=== PATIENT | female | born 1965 | race African-American/Black ===

== ENCOUNTER 2017-10-17 13:31 | Observation (INO) ==
--- NOTE | 2017-10-17 14:13 | ED ---
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 She tells me her blood pressure has been running high since 2011, but she started not feeling right this morning when she woke up. She cannot describe this feeling. She denies any chest pain or tightness. She denies any shortness of breath. She denies any headache, nausea, vomiting. She has no new focal deficits or weakness. She states she simply just feels weak. Related Data Home Medications Medication Instructions Recorded Confirmed Unable to Obtain Home Meds 10/17/17 10/17/17 Allergies Allergy/AdvReac Type Severity Reaction Status Date / Time No Known Allergies Allergy Unverified 10/17/17 14:10 Review of Systems ROS: all other systems reviewed are negative FOR[facility]LY [facility] Medical History Medical History CVA (cerebral vascular accident) (Acute) Hypertension (Acute) Surgical History Surgical History H/O hernia repair (Acute) Social History Social History Substance History: No History of Abuse Second Hand Smoke Exposure: No Smoking Status: Former smoker Tobacco Type: Cigarettes How Often Do You Have a Drink Containing Alcohol: Never Recent Travel in [facility] within the Last 8 Weeks: No Recent Out of Country Travel within the Last 8 Weeks: No Exam Narrative Exam Narrative: GENERAL: Well-nourished female patient, appears nontoxic and without distress SKIN: Focused skin assessment warm/dry. HEAD: Atraumatic. Normocephalic. EYES: Pupils equal and round. No scleral icterus. No injection or drainage. ENT: No nasal bleeding or discharge. Mucous membranes pink and moist. NECK: Trachea midline. No JVD. CARDIOVASCULAR: Regular rate and rhythm. No murmur appreciated. RESPIRATORY: No accessory muscle use. Clear to auscultation. Breath sounds equal bilaterally. GASTROINTESTINAL: Abdomen soft, non-tender, nondistended. Hepatic and splenic margins not palpable. MUSCULOSKELETAL: Contraction of the right hand. Weakness and limited movement right upper and lower extremity. NEUROLOGICAL: Awake and alert. Patient does move all extremities however. She does have clear speech. PSYCHIATRIC: Appropriate mood and affect; insight and judgment normal. Course Initial Documented Vital Signs Temperature 98.3 F 10/17/17 13:59 Pulse Rate 76 10/17/17 13:59 Respiratory Rate 18 10/17/17 13:59 Blood Pressure 222/93 H 10/17/17 13:59 Pulse Oximetry 100 10/17/17 13:59 Last Documented Vital Signs Temperature 98.8 F 10/18/17 00:00 Pulse Rate 64 10/18/17 04:00 Respiratory Rate 18 10/18/17 04:00 Blood Pressure 178/84 H 10/18/17 04:00 Pulse Oximetry 98 10/18/17 00:00 Medical Decision Making ANNAMARIA Attestation ANNAMARIA supervised visit: Yes Attestation: I, Dr. Nguyen, have reviewed the advance practice practitioner's documentation and am in agreement, met with the patient face to face, made the diagnosis, and the medical decision making was done by me. *My assessment and Findings: Patient is a 51-year-old female who presents with complaint of fatigue and just not feeling right. She appeared well though fatigued, on exam. EKG did show slight elevation of the ST segment in V1 but no other acute ST or T-wave changes. Initial troponin was normal, repeat troponin however had gone up slightly. At this point she was then admitted to the hospital for further workup, evaluation, and management. MDM Narrative Medical decision making narrative: 52-year-old female presents emergency department for evaluation. Patient appears nontoxic. She appears without distress. Her vital signs are stable. EKG is reviewed by my attending physician and there is ST elevation in V1 but no other consecutive leads. We will add troponin to the patient's lab work. Lab work is otherwise without acute concern troponin is within normal limits but we will add a delta troponin to see if this changes and it has increased however is still within normal limits. I discussed the patient my attending physician. We will place her in the chest pain center for further evaluation of this. Plan is discussed with the patient she is in agreement with this plan of care. Differential Diagnosis Differential Diagnosis: Electrolyte abnormality versus ACS versus hypertension urgency versus essential hypertension Medical Records Medical records reviewed: Yes I reviewed the patient's medical records. Lab Data Lab results reviewed: Yes I reviewed the patient's lab results. Result diagrams: 10/17/17 14:40 10/17/17 14:40 Lab Results 10/17/17 10/17/17 10/17/17 Range/Units 14:40 14:40 14:40 WBC 4.6 (4.0-11.0) th/mm3 RBC 4.86 (4.00-5.30) mil/mm3 Hgb 12.9 (11.6-15.3) gm/dL Hct 40.5 (35.0-46.0) % MCV 83.3 (80.0-100.0) fL MCH 26.5 L (27.0-34.0) pg MCHC 31.8 L (32.0-36.0) % RDW 16.3 (11.6-17.2) % Plt Count 138 L (150-450) th/mm3 MPV 9.1 (7.0-11.0) fL Neut % (Auto) 60.1 (16.0-70.0) % Lymph % (Auto) 29.2 (9.0-44.0) % [place] % (Auto) 8.3 H (0.0-8.0) % Eos % (Auto) 1.9 (0.0-4.0) % Baso % (Auto) 0.5 (0.0-2.0) % Neut # (Auto) 2.8 (1.8-7.7) th/mm3 Lymph # (Auto) 1.3 (1.0-4.8) th/mm3 [place] # (Auto) 0.4 (0.0-0.9) th/mm3 Eos # (Auto) 0.1 (0.0-0.4) th/mm3 Baso # (Auto) 0.0 (0.0-0.2) th/mm3 WBC Differential . Differential Comment Auto diff final Sodium 141 (136-145) meq/L Potassium 5.7 H (3.5-5.1) meq/L Chloride 109 H (98-107) meq/L Carbon Dioxide 23.5 (21.0-32.0) meq/L Anion Gap 9 (5-15) meq/L BUN 12 (7-18) mg/dL Creatinine 1.35 H (0.50-1.00) mg/dL Estimated GFR 50 L (>89) mL/min Random Glucose 73 L (74-106) mg/dL Calcium 8.9 (8.5-10.1) mg/dL Total Creatine Kinase 203 H (26-192) U/L CK-MB (CK-2) 1.1 (0.5-3.6) ng/mL CK-MB (CK-2) % 0.5 (0.0-4.0) % Troponin I 0.03 (0.02-0.05) ng/mL Urine Color (Yellw/Straw) Urine Clarity (Clear) Urine pH (5.0-8.5) Ur Specific [place] (1.002-1.035) Urine Protein (Neg-Trace) mg/dL Urine Glucose (UA) (Negative) mg/dL Urine Ketones (Negative) mg/dL Urine Occult Blood (Negative) Urine Nitrate (Negative) Urine Bilirubin (Negative) Urine Urobilinogen (Less than 2) mg/dL Ur Leukocyte Esterase (Negative) Urine RBC (0-3) /hpf Urine WBC (0-5) /hpf Ur Squamous Epith Cells (0-5) /hpf Hyaline Casts (0-3) /lpf Urine Mucus (Occasional) /lpf Micro UA Comment Urine Culture Comments 10/17/17 10/17/17 10/17/17 Range/Units 17:50 19:20 21:04 WBC (4.0-11.0) th/mm3 RBC (4.00-5.30) mil/mm3 Hgb (11.6-15.3) gm/dL Hct (35.0-46.0) % MCV (80.0-100.0) fL MCH (27.0-34.0) pg MCHC (32.0-36.0) % RDW (11.6-17.2) % Plt Count (150-450) th/mm3 MPV (7.0-11.0) fL Neut % (Auto) (16.0-70.0) % Lymph % (Auto) (9.0-44.0) % [place] % (Auto) (0.0-8.0) % Eos % (Auto) (0.0-4.0) % Baso % (Auto) (0.0-2.0) % Neut # (Auto) (1.8-7.7) th/mm3 Lymph # (Auto) (1.0-4.8) th/mm3 [place] # (Auto) (0.0-0.9) th/mm3 Eos # (Auto) (0.0-0.4) th/mm3 Baso # (Auto) (0.0-0.2) th/mm3 WBC Differential Differential Comment Sodium (136-145) meq/L Potassium (3.5-5.1) meq/L Chloride (98-107) meq/L Carbon Dioxide (21.0-32.0) meq/L Anion Gap (5-15) meq/L BUN (7-18) mg/dL Creatinine (0.50-1.00) mg/dL Estimated GFR (>89) mL/min Random Glucose (74-106) mg/dL Calcium (8.5-10.1) mg/dL Total Creatine Kinase 114 (26-192) U/L CK-MB (CK-2) 0.9 (0.5-3.6) ng/mL CK-MB (CK-2) % (0.0-4.0) % Troponin I 0.05 0.05 (0.02-0.05) ng/mL Urine Color Yellow (Yellw/Straw) Urine Clarity Hazy H (Clear) Urine pH 5.0 (5.0-8.5) Ur Specific [place] 1.021 (1.002-1.035) Urine Protein 100 H (Neg-Trace) mg/dL Urine Glucose (UA) Negative (Negative) mg/dL Urine Ketones Trace H (Negative) mg/dL Urine Occult Blood Negative (Negative) Urine Nitrate Negative (Negative) Urine Bilirubin Negative (Negative) Urine Urobilinogen 2.0 H (Less than 2) mg/dL Ur Leukocyte Esterase Small H (Negative) Urine RBC 8 H (0-3) /hpf Urine WBC 8 H (0-5) /hpf Ur Squamous Epith Cells 5 (0-5) /hpf Hyaline Casts 4 (0-3) /lpf Urine Mucus Moderate H (Occasional) /lpf Micro UA Comment Culture not ind Urine Culture Comments Culture not ind ECG Data EKG Prior to Arrival: No Attestation: I personally reviewed and interpreted this ECG as follows: (EKG shows normal sinus rhythm at a rate of 70. There is slight elevation of the ST segment in V1 without other ST or T wave changes.) Discharge Plan Discharge Disposition Patient Disposition: 30 Still Patient Discharge Condition Condition: Stable Discharge Details Diagnosis: Hypertension, Atypical chest pain Physicians Team ED Provider: Amanda Nguyen ED Midlevel Provider: Jaquelin Salgado Primary Care Provider: Ranjith James Attending Provider: Danyel Caldwell Status ED Status: Left Department Discharge Information Discharge Date/Time: 10/17/17 19:35
[2017-10-17 15:15] LABS: Baso % (Auto) 0.5 % (0.0-2.0); Eos # (Auto) 0.1 th/mm3 (0.0-0.4); Eos % (Auto) 1.9 % (0.0-4.0); Hematocrit 40.5 % (35.0-46.0); Hemoglobin 12.9 gm/dL (11.6-15.3); Lymph # (Auto) 1.3 th/mm3 (1.0-4.8); Lymph % (Auto) 29.2 % (9.0-44.0); Mean Corpuscular HGB Conc 31.8 % (32.0-36.0); Mean Corpuscular Hemoglobin 26.5 pg (27.0-34.0); Mean Corpuscular Volume 83.3 fL (80.0-100.0); Mean Platelet Volume 9.1 fL (7.0-11.0); Mono # (Auto) 0.4 th/mm3 (0.0-0.9); Mono % (Auto) 8.3 % (0.0-8.0); Neut # (Auto) 2.8 th/mm3 (1.8-7.7); Neut % (Auto) 60.1 % (16.0-70.0); Platelet Count 138 th/mm3 (150-450); Red Blood Count 4.86 mil/mm3 (4.00-5.30); Red Cell Distribution Width 16.3 % (11.6-17.2); White Blood Count 4.6 th/mm3 (4.0-11.0)
[2017-10-17 15:27] LABS: Calcium 8.9 mg/dL (8.5-10.1); Carbon Dioxide 23.5 meq/L (21.0-32.0)
[2017-10-17 15:28] LABS: Potassium 5.7 meq/L (3.5-5.1)
[2017-10-17 16:44] LABS: Troponin I 0.03 ng/mL (0.02-0.05)
[2017-10-17 16:57] LABS: CKMB Percent 0.5 % (0.0-4.0); Creatine Kinase MB 1.1 ng/mL (0.5-3.6)
[2017-10-17] MEDS ORDERED: Acetaminophen 500 MG Tablet PO PRN (18:55)
[2017-10-17 19:52] LABS: Bilirubin,Urine Negative (Negative); Clarity,Urine Hazy (Clear); Color,Urine Yellow (Yellw/Straw); Glucose,Urine (UA) Negative (Negative); Hyaline Casts,Urine 4 /lpf (0-3); Leukocyte Esterase,Urine Small (Negative); Mucus,Urine Moderate /lpf (Occasional); Nitrite,Urine Negative (Negative); Specific Gravity,Urine 1.021 (1.002-1.035); Squamous Epithelial Cell,Urine 5 /hpf (0-5)
[2017-10-17 21:48] LABS: Creatine Kinase 114 U/L (26-192); Troponin I 0.05 ng/mL (0.02-0.05)
[2017-10-17 22:00] LABS: Creatine Kinase MB 0.9 ng/mL (0.5-3.6)
[2017-10-18] MEDS ORDERED: amLODIPine 10 MG Tablet PO ONE (07:32)
--- NOTE | 2017-10-18 07:33 | P.HPCA ---
History of Present Illness Primary Care Physician: Ranjith James Chief Complaint: elevated blood pressure History of Present Illness: 52 year old female with history of CVA and hypertension presents to Er for further evaluation of blood pressure and dizziness. Endorses intermittent feelings of dizziness and weakness for years, often with accompanying elevated blood pressure. After leaving [employer]onism yesterday felt weak and dizzy, was worried her blood pressure may be elevated therefore came to ER for further evaluation. History of CVA a few years ago, leaving her with right arm deficit. Reports being prescribed clonidine TID and compliance with regimen. Dizziness and weakness reported have resolved. No chest pain, pressure, or tightness. No associated symptoms of nausea, vomiting, dyspnea, or diaphoresis. No known coronary artery disease. Follows with Dr. James. Family history noncontributory for early onset cardiovascular disease. No recent illness or injury. Been in her general state of health. - Diagnosis (1) Hypertension Review of Systems All other systems reviewed negative except as stated in HPI PMFSH - History History Provided By: Patient - Medical History Medical History: Medical History (Last Reviewed 10/18/17 @ 08:50 by JUSTYN Parkinson) CVA (cerebral vascular accident) Hypertension - Surgical History Surgical History: Surgical History (Last Reviewed 10/18/17 @ 08:50 by JUSTYN Parkinson) H/O hernia repair - Tobacco History Second Hand Smoke Exposure: No Tobacco Use In Past 30 Days: No Smoking Status: Former smoker Tobacco Type: Cigarettes - Alcohol History How Often Do You Have a Drink Containing Alcohol: Never - Substance Use History Substance History: No History of Abuse - Travel History Recent Travel in the [place] Within the Last 8 Weeks: No Recent Travel Out of the Country Within the Last 8 Weeks: No - Immunization History Tetanus Immunization: >5 Years Hx Influenza Vaccine This Season: No Medications and Allergies Active Medications: Active Medications Acetaminophen (Tylenol) 500 mg PO Q4H PRN PRN Reason: HEADACHE Amlodipine Besylate (Norvasc) 10 mg PO ONCE ONE Stop: 10/18/17 07:33 Nitroglycerin (Nitrostat Sl) 0.4 mg SL Q5M PRN PRN Reason: CHEST PAIN Sodium Chloride (Ns Flush) 2 ml IV.FLUSH BID RACHEL Last Admin: 10/17/17 20:41 Dose: 2 ml Sodium Chloride (Ns Flush) 2 ml IV.FLUSH PRN PRN PRN Reason: FLUSH AFTER USING IV ACCESS Allergies Allergy/AdvReac Type Severity Reaction Status Date / Time No Known Allergies Allergy Unverified 10/17/17 14:10 Exam Vital signs: Vital Signs 10/17/17 13:59 10/17/17 14:11 10/17/17 15:45 Temperature 98.3 F Pulse Rate 76 81 75 Respiratory Rate 18 17 19 Blood Pressure 222/93 H 193/95 H 167/77 H Pulse Oximetry 100 99 99 10/17/17 17:33 10/17/17 19:12 10/17/17 19:32 Temperature Pulse Rate 68 66 60 Respiratory Rate 19 16 16 Blood Pressure 161/92 H 192/89 H 174/79 H Pulse Oximetry 98 99 10/17/17 20:00 10/18/17 00:00 10/18/17 04:00 Temperature 98.3 F 98.8 F Pulse Rate 61 72 64 Respiratory Rate 16 18 18 Blood Pressure 177/68 H 168/58 H 178/84 H Pulse Oximetry 98 98 Intake & Output 10/17/17 10/18/17 10/18/17 18:59 06:59 18:59 Weight 99.79 kg 99.79 kg Other: Weight On Admission 99.79 kg Narrative: GENERAL: Alert WN, WD, NAD, obese, -[place] female, ambulating in room HEAD: NC, AT NECK: Supple, no masses, trachea midline CV: RRR, without murmur, rub, gallop, no JVD. No carotid bruits. RESP: Clear lungs throughout bilateral, no crackles, wheeze, rhonchi, symmetrical chest rise, nonlabored, able to speak in full sentences ABD: Soft, NT, ND, no masses, positive bowel tones EXT: Pulses +2x4, no dependent edema MS: Normal tone x4 extremities, nontender, full range of motion NEURO: CN II through CN XII grossly intact, right arm < left arm. Right hand contracted. PSYCH: A+O x3, flat affect, appropriate speech, mood, insight and judgment SKIN: Normal turgor, normal texture, no lesions, no rashes, brisk cap refill, even hair distribution Results 10/17/17 14:40 10/17/17 14:40 Cardiac Enzymes 10/17/17 10/17/17 10/17/17 Range/Units 14:40 17:50 21:04 CK-MB (CK-2) 1.1 0.9 (0.5-3.6) ng/mL Troponin I 0.03 0.05 0.05 (0.02-0.05) ng/mL CBC 10/17/17 Range/Units 14:40 WBC 4.6 (4.0-11.0) th/mm3 RBC 4.86 (4.00-5.30) mil/mm3 Hgb 12.9 (11.6-15.3) gm/dL Hct 40.5 (35.0-46.0) % Plt Count 138 L (150-450) th/mm3 Neut # (Auto) 2.8 (1.8-7.7) th/mm3 Lymph # (Auto) 1.3 (1.0-4.8) th/mm3 [place] # (Auto) 0.4 (0.0-0.9) th/mm3 Eos # (Auto) 0.1 (0.0-0.4) th/mm3 Baso # (Auto) 0.0 (0.0-0.2) th/mm3 Comprehensive Metabolic Panel 10/17/17 Range/Units 14:40 Sodium 141 (136-145) meq/L Potassium 5.7 H (3.5-5.1) meq/L Chloride 109 H (98-107) meq/L Carbon Dioxide 23.5 (21.0-32.0) meq/L BUN 12 (7-18) mg/dL Creatinine 1.35 H (0.50-1.00) mg/dL Calcium 8.9 (8.5-10.1) mg/dL Intake and Output 10/17/17 10/18/17 10/18/17 22:59 06:59 14:59 Other: Weight 99.79 kg Weight On Admission 99.79 kg EKG interpretations - EKG EKG results cardiology: sinus rhythm, normal axis, normal QRS, normal ST/T Caprini VTE Risk Assessment Caprini VTE Risk Assessment: No/Low Risk (score <= 1) Caprini Risk Assessment Model: Point Value = 1 Point Value = 2 Point Value = 3 Point Value = 5 Age 41-60 Minor surgery BMI > 25 kg/m2 Swollen legs Varicose veins or History of unexplained or recurrent spontaneous Oral contraceptives or hormone replacement Sepsis (< 1 month) Serious lung disease, including pneumonia (< 1 month) Abnormal pulmonary function Acute myocardial infarction Congestive heart failure (< 1 month) History of inflammatory bowel disease Medical patient at bed rest Age 61-74 Arthroscopic surgery Major open surgery (> 45 min) Laparoscopic surgery (> 45 min) Malignancy Confined to bed (> 72 hours) Immobilizing plaster cast Central venous access Age >= 75 History of VTE Family history of VTE Factor V Leiden Prothrombin 27267A Lupus anticoagulant Anticardiolipin antibodies Elevated serum homocysteine Heparin-induced thrombocytopenia Other congenital or acquired thrombophilia Stroke (< 1 month) Elective arthroplasty Hip, pelvis, or leg fracture Acute spinal cord injury (< 1 month) Prophylaxis Regimen: Total Risk Factor Score Risk Level Prophylaxis Regimen 0-1 Low Early ambulation 2 Moderate Order ONE of the following: *Sequential Compression Device (SCD) *Heparin 5000 units SQ BID 3-4 Higher Order ONE of the following medications: *Heparin 5000 units SQ TID *Enoxaparin/Lovenox 40 mg SQ daily (WT < 150 kg, CrCl > 30 mL/min) *Enoxaparin/Lovenox 30 mg SQ daily (WT < 150 kg, CrCl > 10-29 mL/min) *Enoxaparin/Lovenox 30 mg SQ BID (WT < 150 kg, CrCl > 30 mL/min) AND/OR *Sequential Compression Device (SCD) 5 or more Highest Order ONE of the following medications: *Heparin 5000 units SQ TID (Preferred with Epidurals) *Enoxaparin/Lovenox 40 mg SQ daily (WT < 150 kg, CrCl > 30 mL/min) *Enoxaparin/Lovenox 30 mg SQ daily (WT < 150 kg, CrCl > 10-29 mL/min) *Enoxaparin/Lovenox 30 mg SQ BID (WT < 150 kg, CrCl > 30 mL/min) AND *Sequential Compression Device (SCD) Assessment and Plan - Assessment (1) Hypertension Code(s): I10 - Essential (primary) hypertension Status: Acute Plan: Admitted chest pain center. ACS ruled out 3 sets of EKGs. Patient denies reporting chest pain, dyspnea, or diaphoresis. Dizziness resolved. Seen and evaluated by Dr. Leroy Ocampo. No further cardiac testing. Instructed to stop clonidine, switching to Amlodipine 10 mg daily. Start aspirin 81 mg daily due to history of CVA. Instructed to work on weight loss, following a low- sodium diet, increasing daily activity, and follow-up with primary care provider next week for further evaluation of blood pressure. Made aware of mild renal insufficiency likely due to uncontrolled hypertension although should be followed up with primary care provider. Verbalized understanding and agreeable to plan of care. H&P: Quality - VTE Deep Vein Thrombosis/Pulmonary Embolism Present on Admission: No (1) Hypertension Qualifiers: Hypertension type: unspecified Qualified Code(s): I10 - Essential (primary) hypertension
[2017-10-18 08:39] VITALS: PULSE 73; RESP 16; TEMP 97.5; O2SAT 99
[2017-10-18 09:20] VITALS: BP 147/93
--- NOTE | 2017-10-18 13:40 | ECG ---
Date Performed: 10/17/2017 Time Performed: 22:40:20 PTAGE: 52 years EKG: Sinus rhythm MINIMAL VOLTAGE CRITERIA FOR LVH, CONSIDER NORMAL VARIANT NONSPECIFIC T-WAVE ABNORMALITY BORDERLINE ECG NO PREVIOUS TRACING DOCTOR: Leroy Ocampo Interpretating Date/Time 10/18/2017 13:38:43
--- NOTE | 2017-10-18 13:41 | ECG ---
Date Performed: 10/17/2017 Time Performed: 14:15:41 PTAGE: 52 years EKG: Sinus rhythm WITH OCCASIONAL SUPRAVENTRICULAR PREMATURE COMPLEXES MODERATE VOLTAGE CRITERIA FOR LVH, CONSIDER NOR MAL VARIANT BORDERLINE ECG INTERPRETATION BASED ON A DEFAULT AGE OF 40 YEARS PREVIOUS TRACING : 11/05/2013 20.40 Since previous tracing, no significant change noted DOCTOR: Leroy Ocampo Interpretating Date/Time 10/18/2017 13:39:36
== END 2017-10-18 10:40 | disposition home or self-care (01) ==
LOC: NEPFCDU 13:31 → NEDA 13:31 → NEPE 13:31 → NEPFCDU 19:35
PROVIDERS: ADMIT Internal Medicine Interventional Cardiology; ATTEND Internal Medicine Interventional Cardiology
DX: I10 Essential (primary) hypertension; R94.31 Abnormal electrocardiogram [ECG] [EKG]; N28.9 Disorder of kidney and ureter, unspecified; F17.210 Nicotine dependence, cigarettes, uncomplicated; Z86.73 Personal history of transient ischemic attack (TIA), and cerebral infarction without residual deficits